=== PATIENT | female | born 1965 | race Two or more races ===

== ENCOUNTER 2017-08-28 09:53 | Outpatient (CLI) | payer OTHER | END 2017-08-28 09:58 | disposition home or self-care (01) | LOC: LAB 09:53 | DX: N20.0 Calculus of kidney (principal); R82.79 Other abnormal findings on microbiological examination of urine ==

== ENCOUNTER 2017-09-27 09:15 | Outpatient (CLI) | payer OTHER ==
[~2017-09-27 09:15] MED LIST: OMEPRAZOLE20 MG PO; PAXIL20 MG PO; SINGULAIR10 MG PO; ZANTAC150 M3 PO
== END 2017-09-27 09:16 | disposition home or self-care (01) ==
LOC: LAB 09:15
DX: N20.0 Calculus of kidney (principal)

== ENCOUNTER 2017-09-27 09:44 | Inpatient (IN) | payer OTHER ==
[~2017-09-27] VITALS: Ht 162.6 cm; Wt 113.4 kg
== END 2017-09-29 18:50 | disposition home or self-care (01) | DRG 661 ==
LOC: CIR.AMB 09:44 → SURH 14:45 → EDSTATUS 14:45 → CIR.AMB 14:45 → O/R 16:07 → SURG 16:07
PROVIDERS: Urology
PROC: BT1DZZZ Fluoroscopy of Right Kidney, Ureter and Bladder (ICD-10-PCS; 2017-09-27)
PROC: 0TC08ZZ Extirpation of Matter from Right Kidney, Via Natural or Artificial Opening Endoscopic (ICD-10-PCS; principal; 2017-09-27 11:30)
DX: N20.0 Calculus of kidney (principal)

== ENCOUNTER 2017-10-06 08:15 | Outpatient (CLI) | payer OTHER | END 2017-10-06 08:23 | disposition home or self-care (01) | LOC: LAB 08:15 | DX: N20.0 Calculus of kidney (principal) ==

== ENCOUNTER 2018-08-15 07:57 | Day surgery (SDC) | payer OTHER ==
[2018-08-15] MEDS ORDERED: PERCOCET 5-3251 EACH PO (12:20)
== END 2018-08-15 15:55 | disposition home or self-care (01) ==
LOC: CIR.AMB 07:57
DX: D35.1 Benign neoplasm of parathyroid gland (principal)

== ENCOUNTER 2019-09-11 06:39 | Day surgery (SDC) | payer OTHER ==
[~2019-09-11 06:39] MED LIST changes: +BIOTIN1 M1 PO; +CATAFLAN; +CLARITIN10 M1 PO; +NABUMETONE750 MG PO; +PERCOCET 5-3251 EACH PO; +SINGULAIR10 MG
[2019-09-11] MEDS ORDERED: PERCOCET 5-3251 EACH PO (10:25)
== END 2019-09-11 13:20 | disposition home or self-care (01) ==
LOC: CIR.AMB 06:39
PROVIDERS: ATTEND Surgery
DX: D35.1 Benign neoplasm of parathyroid gland (principal)

== ENCOUNTER → 2021-10-06 14:08 | Day surgery (SDC) | payer OTHER | END | disposition home or self-care (01) | LOC: SURG 06:00 → O/R 06:00 → EDSTATUS 09:45 → O/R 12:30 → SURG 12:32 → CIR.AMB 14:08 | PROVIDERS: ATTEND Urology | DX: N20.1 Calculus of ureter (principal); Z20.822 Contact with and (suspected) exposure to COVID-19; Z88.0 Allergy status to penicillin; Z99.89 Dependence on other enabling machines and devices; G47.33 Obstructive sleep apnea (adult) (pediatric); E66.9 Obesity, unspecified ==